=== PATIENT | male | born 1985 | race Caucasian/White ===

== ENCOUNTER → 2017-08-22 | Outpatient (CLI) | payer OTHER ==
--- NOTE | 2017-08-22 11:48 | DIAGNOSTIC IMAGING REPORT ---
R KNEE 3 VIEWS CLINICAL HISTORY: KNEE pain COMPARISON: None. DISCUSSION: The bones and joint spaces appear intact. There is no evidence of fracture, dislocation or bony disease. There is no evidence for soft tissue swelling. IMPRESSION: Negative study. The above report was generated using voice recognition software. It may contain grammatical, syntax or spelling errors. Electronically signed by: Caleb Mercer M.D. 08/22/2017 11:47 AM Dictated Date/Time: 08/22/2017 11:46 AM
== END | disposition home or self-care (01) ==
LOC: C.RAD1850 11:29
PROVIDERS: ATTEND Family Medicine
DX: M25.561 Pain in right knee (principal)

== ENCOUNTER 2023-01-31 17:04 | Inpatient (IN) ==
--- NOTE | 2023-01-31 17:18 | ED Triage Note ---
Date of Service January 31, 2023 History of Present Illness This patient was briefly evaluated while in triage. An abbreviated physical exam was performed. 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 Feels similar to when he had a SBO in the past. No fevers or chills, no known sick contacts. Physical Exam CONSTITUTIONAL: in no acute pain or distress, resting comfortably SKIN: pink, warm, dry CARDIAC: regular rate and rhythm RESPIRATORY: in no respiratory distress, lungs clear to auscultation ABDOMEN: bowel sounds possibly hypoactive, diffuse tenderness, nothing focal. Initial orders for labs and / or imaging were placed and patient was placed in the waiting area until a bed is available. Please see further documentation for the full ED course.
[2023-01-31 17:54] LABS: Basophils # (auto) 0.03 K/uL (0.00-0.20); Basophils % (auto) 0.3 %; Eosinophils # (auto) 0.04 K/uL (0.00-0.50); Eosinophils % (auto) 0.4 %; Hematocrit (blood only) 49.1 % (42.0-52.0); Immature Granulocytes # (auto) 0.03 K/uL (0.01-0.20); Immature Granulocytes % (auto) 0.3 %; Lymphocytes # (auto) 1.47 K/uL (1.20-3.40); Lymphocytes % (auto) 13.1 %; Mean Corpuscular Hemoglobin 30.6 pg (25.0-34.0); Mean Corpuscular Hgb Conc 34.6 g/dL (32.0-36.0); Mean Corpuscular Volume 88.5 fL (80.0-100.0); Mean Platelet Volume 9.7 fL (9.4-12.4); Monocytes # (auto) 0.99 K/uL (0.11-0.59); Monocytes % (auto) 8.8 %; Neutrophils % (auto) 77.1 %; Platelet Count 310 K/uL (130-400); RDW Coefficient of Variation 11.9 % (11.5-14.5); RDW Standard Deviation 38.7 fL (36.4-46.3); Red Blood Count 5.55 M/uL (4.70-6.10); White Blood Count 11.26 K/ul (4.8-10.8)
[2023-01-31 18:05] LABS: Albumin Globulin Ratio 1.8 (0.9-2); Albumin Level 4.9 gm/dl (3.4-5.0); BUN Creatinine Ratio 15.5 (10-20); Bilirubin,Total 1.2 mg/dl (0.2-1.0); Calcium 10.2 mg/dl (8.6-10.3); Creatinine Clr Calc Pharmacy 106.3 ml/min; Est GFR (African American) 92.7 ml/min; Globulin 2.8 gm/dl (2.5-4.0); Potassium 3.9 mmol/L (3.5-5.1); Total Protein 7.7 gm/dl (6.0-8.3)
[2023-01-31] MEDS ORDERED: OPTIRAY 320 100ml IV ONE (19:53)
--- NOTE | 2023-01-31 19:59 | Emergency Department Note ---
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 Unable to keep anything down as far as food and drink. Feels similar to prior SBO. 1 prior SBO he thinks about 8 years ago that resolved with an NG tube. No trauma, fevers, chills, or sick contacts reported. No urinary symptoms reported. Concerned that he might be getting a bit dehydrated. Did have an old temporal hydrocodone took yesterday with help with the pain and has used some Tylenol today which has been somewhat successful. States hopefully he is getting towards the end of what he believes is a bowel obstruction. Not moving any gas or having bowel movements. PAST MEDICAL HISTORY: As noted above MEDICATIONS: Reviewed home medication SOCIAL HISTORY: Non-smoker PHYSICAL EXAM: GENERAL: alert and oriented in no acute distress on stretcher Head: normocephalic and atraumatic EYES: No injection, discharge or icterus. NECK: Trachea midline. Supple. ENT: Mucous membranes pink and moist. LUNGS: Airway patent. No retractions. Breath sounds clear with good air entry bilaterally. HEART: Regular rate and rhythm. No chest wall tenderness ABDOMEN: Soft minimally tender without guarding or rebound. SKIN: Acyanotic, warm, dry, without rashes EXTREMITIES: Without swelling, tenderness or deformity NEUROLOGICAL: No focal deficits. No aphasia. No facial droop or slurred speech. Ambulatory. CONTINUOUS CARDIAC MONITORING: was ordered and showed a heart rate of 70s-80s bpm in normal sinus rhythm Patient's laboratory studies and imaging reviewed. Differential includes Appendicitis, testicular torsion, infections, diverticulitis, UTI, obstruction, mesenteric ischemia, aortic pathology, inflammatory bowel disease, renal colic, PUD, pancreatitis, biliary pathology, hernia, volvulus, constipation, as well as other pathologies. 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 Increased abdominal pain and nausea and vomiting. Not tolerating much by mouth. Concern for recurrent SBO. Blood work obtained here without significant anemia or thrombocytopenia. Mild leukocytosis noted. No significant electrolyte abnormality signs of renal dysfunction. No evidence of hepatitis or pancreatitis. No cardiac abnormality. Sent for CT scan of the abdomen pelvis to look for possible SBO. CT scan reviewed with concerns for SBO. Given some IV fluids as well as Zofran. Nausea improved he is feeling better after some IV fluids. Will discuss with the general surgery team. CT report reviewed. Patient having some improvement in well-appearing. General surgery will admit the patient for further monitoring and care. DIAGNOSIS: Small bowel obstruction DISPOSITION: Admitted by the general surgery team Past Med/Surg History Medical History History of COVID-19 08/2021, not hospitalized, cough, congestion-resolved Hx of fracture of arm lt., no sx. Surgical History History of intestinal surgery "surgery to fix twisted intestines shortly after "-1985 History of wisdom tooth extraction 2013 Family History Mother Hearing loss Hypertension Father Hypertension Asthma Aunt Stroke maternal Grandmother (Maternal) Breast cancer Other No family history of adverse response to anesthesia No family history of bleeding disorder Social History Smoking Status: Never smoker Second Hand Exposure: No; Do You Dip or Chew Tobacco: No; Hx Alcohol Use: Yes Alcohol type: beer, wine and hard liquor Alcohol Intake Frequency Comment: 3-6 drinks per week Hx Substance Use: No Preferred Language: Macanese Communication Ability: Effective Dobie Worker Required: No Beliefs That Will Affect Care: None marital status: Current Living Situation: Spouse current occupational status: employed current occupation: Professor at [employer] Other Information That Helps Us Care for You: No Feels Safe at Home: Yes Safety Concerns: Feels Safe At This Time Assistive Devices: Contacts and Glasses Allergies Allergies Allergy/AdvReac Type Severity Reaction Status Date / Time No Known Drug Allergies Allergy 0 Verified 01/31/23 22:44 Home Meds Home Medications Medication Instructions Recorded Confirmed cetirizine 10 mg tablet (Zyrtec) 10 mg PO DAILY PRN allergies 06/14/22 09/02/23 fluticasone propionate 50 1 spray intranasal QAM PRN 11/12/21 01/31/23 mcg/actuation nasal allergies spray,suspension olopatadine 0.1 % eye drops 1 drp ophthalmic (eye) BID PRN .. 11/12/21 01/31/23 acetaminophen 325 mg tablet 650 mg PO QID PRN Fever Or Pain 01/31/23 01/31/23 (Tylenol) Results & Data (ED) Vital Signs Vital Signs - 24 hr 01/31/23 17:08 01/31/23 21:25 Temperature 36.6 C Temperature Source Temporal Artery Scan Pulse Rate 111 H Pulse Rate [Apical] 55 L Respiratory Rate 20 16 Respiratory Effort / Characteristics Non-Labored Non-Labored Spontaneous Respiratory Depth Normal Normal Respiratory Pattern Regular Blood Pressure [Right Arm] 119/72 Blood Pressure Mean [Right Arm] 87 Pulse Oximetry 96 97 Oxygen Delivery Method Room Air Room Air Sepsis Recent Fever Within 48 Hours No Sepsis New/Unexplained Change in Mental Status N/A Sepsis Action Taken by Nursing No Action Required Laboratory Data 01/31/23 17:15 01/31/23 17:15 Lab Results 01/31/23 01/31/23 Range/Units 17:15 17:15 WBC 11.26 H (4.8-10.8) K/ul RBC 5.55 (4.70-6.10) M/uL Hgb 17.0 (14.0-18.0) g/dl Hct 49.1 (42.0-52.0) % MCV 88.5 (80.0-100.0) fL MCH 30.6 (25.0-34.0) pg MCHC 34.6 (32.0-36.0) g/dL RDW Std Deviation 38.7 (36.4-46.3) fL RDW Coeff of Yony 11.9 (11.5-14.5) % Plt Count 310 (130-400) K/uL MPV 9.7 (9.4-12.4) fL Immature Gran % (Auto) 0.3 % Neut % (Auto) 77.1 % Lymph % (Auto) 13.1 % Stonewall % (Auto) 8.8 % Eos % (Auto) 0.4 % Baso % (Auto) 0.3 % Neut # (Auto) 8.70 H (1.40-6.50) K/uL Lymph # (Auto) 1.47 (1.20-3.40) K/uL [place]wall # (Auto) 0.99 H (0.11-0.59) K/uL Eos # (Auto) 0.04 (0.00-0.50) K/uL Baso # (Auto) 0.03 (0.00-0.20) K/uL Immature Gran # (Auto) 0.03 (0.01-0.20) K/uL Sodium 137 (136-145) mmol/L Potassium 3.9 (3.5-5.1) mmol/L Chloride 101 (98-107) mmol/L Carbon Dioxide 25 (21-32) mmol/L Anion Gap 11 (3-11) BUN 18 (6-23) mg/dl Creatinine 1.16 (0.6-1.4) mg/dl Est Cr Clr Drug Dosing 106.3 ml/min Est GFR ( Amer) 92.7 ml/min Est GFR (Non-Af Amer) 80.0 ml/min BUN/Creatinine Ratio 15.5 (10-20) Glucose 128 H (70-99(Fasting)) mg/dl Calcium 10.2 (8.6-10.3) mg/dl Total Bilirubin 1.2 H (0.2-1.0) mg/dl AST 21 (13-39) U/L ALT 19 (7-52) U/L Alkaline Phosphatase 21 L (34-104) U/L Total Protein 7.7 (6.0-8.3) gm/dl Albumin 4.9 (3.4-5.0) gm/dl Globulin 2.8 (2.5-4.0) gm/dl Albumin/Globulin Ratio 1.8 (0.9-2) Lipase 30 (11-82) U/L Administered Medications Acetaminophen (Ofirmev) 1,000 mg in 100 mls @ 400 mls/hr IV Q8H PRN PRN Reason: Moderate Pain (Scale 4, 5, 6) Stop: 02/03/23 22:14 Last Infusion: 02/01/23 00:18 Dose: 0 mls/hr Documented By: Admin: 01/31/23 23:59 Dose: 400 mls/hr Documented By: LMP Lactated Ringer's (Lr) 1,000 mls @ 125 mls/hr IV .Q8H DANNY Stop: 03/02/23 22:14 Last Admin: 01/31/23 22:22 Dose: 125 mls/hr Documented By: JIL Discontinued Medications Sodium Chloride (Nss 1000ml) 1,000 mls @ 999 mls/hr IV .Q1H1M ONE Stop: 01/31/23 21:23 Last Infusion: 01/31/23 21:30 Dose: 0 mls/hr Documented By: Admin: 01/31/23 20:29 Dose: 999 mls/hr Documented By: JIL Ioversol (Optiray 320 100ml) 92 ml IV ONCE ONE Stop: 01/31/23 19:54 Last Admin: 01/31/23 19:54 Dose: 92 ml Documented By: LEXA Ondansetron HCl (Ondansetron Inj 2 Mg/Ml 2 Ml Vial) 4 mg IV NOW STA Stop: 01/31/23 20:24 Last Admin: 01/31/23 20:30 Dose: 4 mg Documented By: JIL Imaging Data Radiologist's Impression: Abdomen/Pelvis CT 01/31/23 17:13 Exam(s): CT ABDOMEN + PELVIS With Contrast IV Amt: 92 ml optiray 320 EXAM: CT Abdomen and Pelvis With Intravenous Contrast CLINICAL HISTORY: Reason for exam: history of SBO, diffuse abd pain, vomiting x 3 day. TECHNIQUE: Axial computed tomography images of the abdomen and pelvis with intravenous contrast. CTDI is 25.07 mGy and DLP is 1331.16 mGy-cm. Automated exposure control was utilized for the study. A dose lowering technique was utilized adhering to the principles of ALARA. CONTRAST: Patient received 92 ml optiray 320 of IV contrast COMPARISON: No relevant prior studies available. FINDINGS: Lung bases: Unremarkable. No mass. No consolidation. ABDOMEN: Liver: Unremarkable. No mass. Gallbladder and bile ducts: Unremarkable. No calcified stones. No ductal dilation. Pancreas: Unremarkable. No mass. No ductal dilation. Spleen: Unremarkable. No splenomegaly. Adrenals: Unremarkable. No mass. Kidneys and ureters: Unremarkable. No solid mass. No hydronephrosis. Stomach and bowel: Distended fluid-filled small bowel, measuring up to 3 cm, concerning for small bowel obstruction. The area of transition is in the mid abdomen on coronal image 39. Surgical evaluation recommended. No mucosal thickening. PELVIS: Appendix: No findings to suggest acute appendicitis. Bladder: Unremarkable. No mass. Reproductive: Unremarkable as visualized. ABDOMEN and PELVIS: Intraperitoneal space: Unremarkable. No free air. No significant fluid collection. Bones/joints: No acute fracture. No dislocation. Soft tissues: Unremarkable. Vasculature: Unremarkable. No abdominal aortic aneurysm. Lymph nodes: Unremarkable. No enlarged lymph nodes. IMPRESSION: Distended fluid-filled small bowel, measuring up to 3 cm, concerning for small bowel obstruction. The area of transition is in the mid abdomen on coronal image 39. Surgical evaluation recommended. Electronically signed by: Paddy Arroyo MD 01/31/23 22:07 PM Discharge Plan Visit Data Chief Complaint: Abdominal Pain Stated Complaint: BLOCKAGE ED Provider: Zhen Camarena Discharge Problem: Small bowel obstruction Patient Disposition: Admitted As Inpatient Discharge Instructions Interventions: ED Discharge Assessment Last Done: 01/31/23 23:05
[2023-01-31] MEDS ORDERED: SODIUM CHLORIDE 0.9% 1,000 ML IV ONE (20:23)
[2023-01-31] MEDS ORDERED: ONDANSETRON INJ 2 MG/ML 2 ML VIAL IV STA (20:23)
--- NOTE | 2023-01-31 22:08 | CT Scan Report ---
Exam(s): CT ABDOMEN + PELVIS With Contrast IV Amt: 92 ml optiray 320 EXAM: CT Abdomen and Pelvis With Intravenous Contrast CLINICAL HISTORY: Reason for exam: history of SBO, diffuse abd pain, vomiting x 3 day. TECHNIQUE: Axial computed tomography images of the abdomen and pelvis with intravenous contrast. CTDI is 25.07 mGy and DLP is 1331.16 mGy-cm. Automated exposure control was utilized for the study. A dose lowering technique was utilized adhering to the principles of ALARA. CONTRAST: Patient received 92 ml optiray 320 of IV contrast COMPARISON: No relevant prior studies available. FINDINGS: Lung bases: Unremarkable. No mass. No consolidation. ABDOMEN: Liver: Unremarkable. No mass. Gallbladder and bile ducts: Unremarkable. No calcified stones. No ductal dilation. Pancreas: Unremarkable. No mass. No ductal dilation. Spleen: Unremarkable. No splenomegaly. Adrenals: Unremarkable. No mass. Kidneys and ureters: Unremarkable. No solid mass. No hydronephrosis. Stomach and bowel: Distended fluid-filled small bowel, measuring up to 3 cm, concerning for small bowel obstruction. The area of transition is in the mid abdomen on coronal image 39. Surgical evaluation recommended. No mucosal thickening. PELVIS: Appendix: No findings to suggest acute appendicitis. Bladder: Unremarkable. No mass. Reproductive: Unremarkable as visualized. ABDOMEN and PELVIS: Intraperitoneal space: Unremarkable. No free air. No significant fluid collection. Bones/joints: No acute fracture. No dislocation. Soft tissues: Unremarkable. Vasculature: Unremarkable. No abdominal aortic aneurysm. Lymph nodes: Unremarkable. No enlarged lymph nodes. IMPRESSION: Distended fluid-filled small bowel, measuring up to 3 cm, concerning for small bowel obstruction. The area of transition is in the mid abdomen on coronal image 39. Surgical evaluation recommended. Electronically signed by: Paddy Arroyo MD 01/31/23 22:07 PM
--- NOTE | 2023-01-31 22:14 | History & Physical Report ---
Date of Service January 31, 2023 Assessment & Plan (1) Small bowel obstruction: Plan: Due to the patient's clinical presentation and findings on imaging he will be admitted to the hospital proceeding as follows: We will hydrate the patient with IV fluids N.p.o. status will be implemented I discussed with the patient the modality of an NG tube which she would like to avoid at this time. As the patient's abdominal exam is essentially benign and he has not had any emesis in approximately 6 hours I feel we can hold on this modality. I did discuss with the patient that if he has worsening of his symptoms this modality will have to be reconsidered We will follow serial labs Analgesia be provided Antiemetics will be provided At the present time the patient again has a benign abdominal exam and therefore a trial of conservative treatment is warranted. We will use SCDs for DVT prevention. No chemical means until it is ascertained that the patient will not require any procedural intervention He will be a level 1 full code History of Present Illness Chief Complaint: Abdominal pain Primary Care Provider: Aydee Frazier This is a 37-year-old male who presented to the hospital secondary to approximately 3 days of generalized abdominal pain. Patient feels as though his abdominal pain was triggered by eating a high fiber diet which has happened in the past. He has had associated nausea and vomiting with his most recent emesis at approximately 4:00 PM today. He denies any fevers, shakes, or chills. He notes his abdominal pain is nonradiating without additional modifying factors other than it feels better after he has emesis. The patient does report that he did have one abdominal surgery as an . 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 This was his only prior abdominal surgery. Patient says that he believes he has had 4-5 small bowel obstructions in the past. He is only formally been diagnosed with with this 1 time in 2014 when he was living in [place] and required hospitalization. He says that this was treated successfully in a conservative manner with an NG tube and IV fluid for hydration. Patient notes additional small bowel obstructions were never formally diagnosed as he merely treated himself symptomatically at home with resolution of his symptoms. Since arrival to the hospital the patient has had labs and imaging which I independent reviewed. CBC revealed white blood cell count was elevated 11.2. Hemoglobin, hematocrit, platelet count were all within normal range. Chemistry profile showed sodium, potassium, BUN, and creatinine were normal. Other than a slight elevation of the patient's total bilirubin at 1.2 his LFTs were unremarkable and his lipase was not elevated. A CT scan of the abdomen pelvis showed the patient had distended and fluid filled small bowel concerning for small bowel obstruction with a transition point in the mid abdomen. There were no findings suggestive of acute appendicitis. There is no free air noted. There is no significant intraperitoneal fluid. At the time of my interview he was resting comfortably in bed and he was in no distress. Concerning past medical history the patient denies any medical problems Concerning past surgical history the patient has had his wisdom teeth extraction and nasal surgery Concerning social history the patient is a non-smoker. Concerning family history the patient does have a history of breast cancer in his Allergies Allergy/AdvReac Type Severity Reaction Status Date / Time No Known Drug Allergies Allergy 0 Verified 01/31/23 22:44 Home Medications Medication Instructions Recorded Confirmed Type cetirizine 10 mg tablet (Zyrtec) 10 mg PO DAILY PRN allergies 11/12/21 01/31/23 History fluticasone propionate 50 1 spray intranasal QAM PRN 11/12/21 01/31/23 History mcg/actuation nasal allergies spray,suspension olopatadine 0.1 % eye drops 1 drp ophthalmic (eye) BID PRN .. 11/12/21 01/31/23 History acetaminophen 325 mg tablet 650 mg PO QID PRN Fever Or Pain 01/31/23 01/31/23 History (Tylenol) Past Med/Surg History Medical History History of COVID-19 08/2021, not hospitalized, cough, congestion-resolved Hx of fracture of arm lt., no sx. Surgical History History of intestinal surgery "surgery to fix twisted intestines shortly after "-1985 History of wisdom tooth extraction 2013 Family History Mother Hearing loss Hypertension Father Hypertension Asthma Aunt Stroke maternal Grandmother (Maternal) Breast cancer Other No family history of adverse response to anesthesia No family history of bleeding disorder Social History Smoking Status: Never smoker Second Hand Exposure: No; Do You Dip or Chew Tobacco: No; Hx Alcohol Use: Yes Alcohol type: beer, wine and hard liquor Alcohol Intake Frequency Comment: 3-6 drinks per week Hx Substance Use: No Preferred Language: Togolese Communication Ability: Effective Willow Machine Tender Required: No Beliefs That Will Affect Care: None marital status: Current Living Situation: Spouse current occupational status: employed current occupation: Professor at [employer] Other Information That Helps Us Care for You: No Feels Safe at Home: Yes Safety Concerns: Feels Safe At This Time Assistive Devices: Contacts and Glasses Review of Systems Constitutional: no fever and no chills Ear, Nose, Mouth, Throat: no hearing loss Respiratory: no cough and no dyspnea Cardiovascular: no chest pain Gastrointestinal: as per Subjective / HPI Genitourinary: no dysuria Musculoskeletal: no back pain Integumentary: no rash Neurologic: no localized weakness Physical Exam Constitutional: WD/WN, vitals as above Eyes: no conjunctival abnormality ENMT: Ears: no hearing impairment and no external ear abnormality Mouth: no oropharynx abnormality Neck: trachea midline Respiratory: normal respiratory effort, lungs clear to auscultation Cardiovascular: Rate/Rhythm: regular rate and regular rhythm Gastrointestinal (Abdomen): At the time of my exam the patient's abdomen was soft and nondistended. It was nonrigid. There is no pain with palpation. There is no rebound tenderness or guarding Musculoskeletal: No calf tenderness Skin: no rashes Neurologic: moves all extremities Psychiatric: A+Ox3, euthymic affect Results & Data Results & Data Vital Signs (Past 12 Hours) Vital Signs Temp Pulse Pulse Resp BP Pulse Ox O2 Del Method 01/31/23 21:25 55 L 16 119/72 97 Room Air 01/31/23 17:08 36.6 C 111 H 20 96 Room Air Supervising Physician Co-Signing Physician Notes This case was discussed with the surgical PA. I agree with the plan PG Care Time/CCT Total # of Minutes Spent Total Time Spent with Patient: Total time spent is greater than 50% in coordination of care (as documented) at patient's floor/unit and/or counseling patient: Coding Level of Care Code 93361 INT INP/OBS CARE 3/75MIN Diagnoses Small bowel obstruction K56.609
[2023-01-31] MEDS ORDERED: MoRPHine SULFATE 4 MG/ML 1 ML CARP\\VIAL IV PRN (22:15)
[2023-01-31] MEDS ORDERED: ONDANSETRON INJ 2 MG/ML 2 ML VIAL IV PRN (22:15)
[2023-01-31] MEDS: LACTATED RINGER'S 1,000 ML IV SCH (22:22)
[2023-01-31] MEDS: ACETAMINOPHEN 1,000 MG/100 ML VIAL IV PRN (23:59)
[2023-02-01] MEDS ORDERED: FAMOTIDINE 20 MG in SYRINGE 3 ML IV STA (00:33)
--- NOTE | 2023-02-01 05:03 | Surgery Progress Note ---
Date of Service February 01, 2023 Assessment & Plan (1) Small bowel obstruction: Plan: Due to the patient's clinical presentation and findings on imaging he has been admitted to the hospital. We will continue care as follows: Continue hydration measures with intravenous fluids Continue n.p.o. status until patient has return of bowel function. Once this has occurred we will initiate diet beginning with sips of clear liquids. I discussed the use of an NG tube with the patient at the time of admission. Since the patient's abdominal exam remains essentially benign and he has not had any further emesis we can continue to hold on using this modality, but if he has worsening of his clinical exam this may need to be reconsidered Continue analgesics as needed Continue antiemetics as needed Encourage ambulation Check a.m. labs when available Continue to use SCDs for DVT prevention. If patient remains hospitalized for extended time consideration be given to adding Lovenox or subcutaneous heparin for DVT prevention. Admission and Anticipated Discharge Date Admission Date: January 31, 2023 Supervising Physician Co-Signing Physician Notes I have seen and examined this patient. No flatus as of this am. Will continue with strict NPO at this time. Still does not have nausea or seem to require an NGT Encouraged ambulation Will f/u in th am Subjective Patient is resting comfortably in bed. Since admission to the hospital the patient said he did have some recurrence of his abdominal pain for which he required 1 dose of morphine. He has not had any nausea or vomiting since admission to the hospital and since my visit in the emergency department. Since arrival to the hospital he has not passed any flatus or had a bowel movement. Physical Exam Gastrointestinal (Abdomen): Bowel sounds are hypoactive. Patient's abdomen is soft, nonrigid, and nondistended. There is no rebound tenderness or guarding and minimal to no pain with palpation Results & Data Vital Signs (Past 12 Hours) Vital Signs Temp Pulse Pulse Resp BP Pulse Ox O2 Del Method 01/31/23 23:44 36.8 C 50 L 131/76 99 Room Air 01/31/23 23:00 52 L 14 126/75 97 Room Air 01/31/23 21:25 55 L 16 119/72 97 Room Air 01/31/23 17:08 36.6 C 111 H 20 96 Room Air PG Care Time/CCT Total # of Minutes Spent Total Time Spent with Patient: Total time spent is greater than 50% in coordination of care (as documented) at patient's floor/unit and/or counseling patient: Coding Level of Care Code 41799 SUB INP/OBS CARE 06/25MIN Diagnoses Small bowel obstruction K56.609
[2023-02-01] MEDS: LACTATED RINGER'S 1,000 ML IV SCH ×3 (05:15→20:52)
[2023-02-01 05:41] LABS: Appearance Urine Clear (Clear); Bacteria Urine Automated Negative (Negative); Bilirubin Urine Negative (Negative); Blood Urine Negative (Negative); Color Urine Dark Yellow; Epithelial Cell Urine Auto 0-5 /lpf (0-5); Glucose Urine UA Negative (Negative); Ketones Urine Trace (Negative); Leukocyte Esterase Urine Negative (Negative); Nitrite Urine Negative (Negative); Protein Urine Trace (Negative); RBC Urine Automated 0-4 /hpf (0-4); Specific Gravity Urine > 1.045 (1.000-1.030); Urobilinogen Urine Negative (Negative); pH Urine 6.5 (4.5-7.5)
[2023-02-01 06:45] LABS: BUN Creatinine Ratio 15.8 (10-20); Creatinine Clr Calc Pharmacy 108.8 ml/min; Est GFR (African American) 94.7 ml/min; Est GFR (Non-African American) 81.7 ml/min; Potassium 4.1 mmol/L (3.5-5.1)
[2023-02-01 07:09] LABS: Basophils # (auto) 0.02 K/uL (0.00-0.20); Basophils % (auto) 0.2 %; Eosinophils # (auto) 0.13 K/uL (0.00-0.50); Eosinophils % (auto) 1.6 %; Hematocrit (blood only) 41.2 % (42.0-52.0); Hemoglobin 14.1 g/dl (14.0-18.0); Immature Granulocytes # (auto) 0.02 K/uL (0.01-0.20); Immature Granulocytes % (auto) 0.2 %; Lymphocytes # (auto) 1.86 K/uL (1.20-3.40); Lymphocytes % (auto) 23.2 %; Mean Corpuscular Hgb Conc 34.2 g/dL (32.0-36.0); Mean Corpuscular Volume 90.5 fL (80.0-100.0); Mean Platelet Volume 9.3 fL (9.4-12.4); Monocytes # (auto) 1.15 K/uL (0.11-0.59); Monocytes % (auto) 14.3 %; Neutrophils # (auto) 4.84 K/uL (1.40-6.50); Neutrophils % (auto) 60.5 %; Platelet Count 234 K/uL (130-400); RDW Coefficient of Variation 12.2 % (11.5-14.5); RDW Standard Deviation 40.2 fL (36.4-46.3); Red Blood Count 4.55 M/uL (4.70-6.10); White Blood Count 8.02 K/ul (4.8-10.8)
[2023-02-01] MEDS: FAMOTIDINE 20 MG in SYRINGE 3 ML IV SCH ×2 (08:10→20:57)
[2023-02-01] MEDS: ACETAMINOPHEN 1,000 MG/100 ML VIAL IV PRN ×2 (08:16→15:41)
[2023-02-01] MEDS ORDERED: KETOROLAC TROMETHAMINE 15 MG/ML VIAL IV ONE (21:17)
[2023-02-02] MEDS: LACTATED RINGER'S 1,000 ML IV SCH ×3 (06:08→21:39)
[2023-02-02] MEDS: FAMOTIDINE 20 MG in SYRINGE 3 ML IV SCH ×2 (08:28→20:27)
[2023-02-02] MEDS ORDERED: FAMOTIDINE 20 MG in SYRINGE 3 ML IV SCH (09:00)
[2023-02-02] MEDS: ACETAMINOPHEN 1,000 MG/100 ML VIAL IV PRN ×2 (09:42→23:29)
--- NOTE | 2023-02-02 14:23 | Surgery Progress Note ---
Date of Service February 02, 2023 Assessment & Plan (1) Small bowel obstruction: Plan: Patient here with concern for SBO Vitals are stable He is feeling better and pain improving. Denies nausea/vomiting. Passing some flatus Abdomen soft and nontender Will allow sips/chips for today and hopeful for further advancement tomorrow pending ongoing progress Admission and Anticipated Discharge Date Admission Date: January 31, 2023 Supervising Physician Co-Signing Physician Notes This patient was seen and examined with the surgical PA, I agree with this plan Subjective patient reports feeling better regarding his pain today. denies any nausea/vomiting. + flatus. he is ambulating, but pain a little worse with movement. Physical Exam Physical Exam: awake/alert, no distress Respiratory: normal respiratory effort Gastrointestinal (Abdomen): Inspection/Auscultation: abdomen not distended Percussion/Palpation: abdomen soft; abdomen nontender Results & Data Vital Signs (Past 12 Hours) Vital Signs Temp Pulse Resp BP Pulse Ox O2 Del Method 02/02/23 08:02 37.2 C 46 L 16 121/69 96 Room Air PG Care Time/CCT Total # of Minutes Spent Total Time Spent with Patient: Total time spent is greater than 50% in coordination of care (as documented) at patient's floor/unit and/or counseling patient: Coding Level of Care Code 65243 SUB INP/OBS CARE 25MIN Diagnoses Small bowel obstruction K56.609
[2023-02-02] MEDS ORDERED: KETOROLAC TROMETHAMINE 15 MG/ML VIAL IV ONE (14:44)
[2023-02-03] MEDS: LACTATED RINGER'S 1,000 ML IV SCH ×2 (05:52→13:57)
[2023-02-03] MEDS: FAMOTIDINE 20 MG in SYRINGE 3 ML IV SCH ×2 (08:08→20:49)
--- NOTE | 2023-02-03 15:18 | Surgery Progress Note ---
Date of Service February 03, 2023 Assessment & Plan (1) Small bowel obstruction: Plan Advance to clear liquid diet today. Advance to full liquids if he tolerates breakfast and lunch. Tentatively discharge for tomorrow. Admission and Anticipated Discharge Date Admission Date: January 31, 2023 Subjective Patient was seen and examined this AM. Says he is no longer has abdominal pain. He has been able to ambulate, is passing gas and having bowel movements denying nausea vomiting. Physical Exam Constitutional: healthy appearing; no acute distress, not ill appearing and not diaphoretic Respiratory: normal respiratory effort; no respiratory distress, no labored breathing and does not use accessory muscles Gastrointestinal (Abdomen): Abdomen is soft, nontender, no guarding Neurologic: moves all extremities and awake; no focal motor deficits and not confused Results & Data Vital Signs (Past 12 Hours) Vital Signs Temp Pulse Resp BP Pulse Ox O2 Del Method 02/03/23 11:26 37 C 46 L 16 149/75 H 98 Room Air 02/03/23 07:33 37.4 C 44 L 14 117/65 95 Room Air PG Care Time/CCT Total # of Minutes Spent Total Time Spent with Patient: Total time spent is greater than 50% in coordination of care (as documented) at patient's floor/unit and/or counseling patient: Coding Level of Care Code 43888 SUB INP/OBS CARE 06/25MIN Diagnoses Small bowel obstruction K56.609
[2023-02-03] MEDS: ACETAMINOPHEN 1,000 MG/100 ML VIAL IV PRN (15:47)
[2023-02-04] MEDS: LACTATED RINGER'S 1,000 ML IV SCH (01:07)
[2023-02-04] MEDS ORDERED: ACETAMINOPHEN 325 MG TAB PO PRN (01:59)
--- NOTE | 2023-02-04 08:26 | Surgery Progress Note ---
Date of Service February 04, 2023 Assessment & Plan (1) Small bowel obstruction: Plan: Patient has tolerated clear liquids very well. He remains hemodynamically stable and afebrile. A mild leukocytosis had resolved. We will advance to full liquid diet today. Patient may be discharged home on a full liquid diet. He is advised to slowly progress to a low fiber diet eating small frequent meals throughout the day. He may be given a prescription of Zofran but understands that the nausea could be a symptom of an impending bowel obstruction. And that if this would be associated with any abdominal pain whatsoever he would need to return to the emergency department He has expressed understanding of this instruction. He should follow-up with his primary care physician after discharge. Admission and Anticipated Discharge Date Admission Date: January 31, 2023 Subjective Patient was seen and examined this AM. Continues to tolerate clear liquid diet. He did mention that yesterday his breakfast tray came and his lunch tray came just 2 hours after that. He took an all of both trays and did have a small wave of nausea. This resolved on its own. He states he is passing excessive amounts of flatus and having bowel movements. He denies any abdominal pain. Physical Exam Constitutional: no acute distress, not ill appearing, no altered mental status and not diaphoretic Respiratory: normal respiratory effort; no respiratory distress, no labored breathing and does not use accessory muscles Gastrointestinal (Abdomen): Abdomen is soft, nontender. No guarding. Neurologic: moves all extremities and awake; no focal motor deficits and not confused Results & Data Vital Signs (Past 12 Hours) Vital Signs Temp Pulse Resp BP Pulse Ox O2 Del Method 02/04/23 07:31 36.7 C 46 L 16 127/75 97 Room Air 02/03/23 21:07 37.2 C 46 L 16 126/75 96 Room Air PG Care Time/CCT Total # of Minutes Spent Total Time Spent with Patient: Total time spent is greater than 50% in coordination of care (as documented) at patient's floor/unit and/or counseling patient: Coding Level of Care Code 99967 SUB INP/OBS CARE 25MIN Diagnoses Small bowel obstruction K56.609
[2023-02-04] MEDS: FAMOTIDINE 20 MG in SYRINGE 3 ML IV SCH (08:55)
== END 2023-02-04 10:29 | disposition home or self-care (01) | DRG 390 ==
LOC: ED 17:04 → 3W 22:18